=== PATIENT | male | born 1970 | race Caucasian/White ===

== ENCOUNTER 2017-12-27 12:41 | Outpatient (CLI) | payer BC, OTHER | END 2017-12-27 12:42 | disposition home or self-care (01) | LOC: BICRAD 12:41 | PROVIDERS: ATTEND Allergy & Immunology | DX: R05 Cough (principal) | CPT/HCPCS: 71046 ==

== ENCOUNTER 2018-02-14 12:49 | Outpatient (CLI) | payer BC | END 2018-02-14 12:50 | disposition home or self-care (01) | LOC: BICRAD 12:49 | PROVIDERS: ATTEND Allergy & Immunology | DX: R05 Cough (principal) | CPT/HCPCS: 71046 ==

== ENCOUNTER 2018-02-25 13:29 | Outpatient (CLI) | payer BC | END 2018-02-25 13:30 | disposition home or self-care (01) | LOC: BICCT 13:29 | PROVIDERS: ATTEND Allergy & Immunology | DX: R05 Cough (principal) | CPT/HCPCS: 71250 ==